=== PATIENT | male | born 1955 | race Caucasian/White ===

== ENCOUNTER → 2017-01-27 | Outpatient (CLI) | payer OTHER ==
[2017-01-27 09:27] LABS: CH 32.7; CHCM 33.9; HCT 52.5 % (39.0-53.0); HDW 2.45; HGB 17.1 gm/dL (13.0-17.5); MCH 31.6 pg (25.0-35.0); MCHC 32.6 g/dL (31.0-37.0); MCV 96.9 fL (80.0-100.0); Mean Platelet Volume 7.8; RBC 5.42 m/uL (4.30-5.90); RDW 14.4 % (11.5-15.5); WBC 9.6 k/uL (3.8-10.6)
[2017-01-27 10:37] LABS: Anion Gap 10 mmol/L; Blood Urea Nitrogen 13 mg/dL (9-20); Calcium 9.4 mg/dL (8.4-10.2); Carbon Dioxide 30 mmol/L (22-30); Chloride 97 mmol/L (98-107); Glucose 114 mg/dL (74-99); Non-African American GFR(MDRD) >60 (>60 ml/min/1.73 sqM); Potassium 5.3 mmol/L (3.5-5.1); Sodium 137 mmol/L (137-145)
== END | disposition home or self-care (01) ==
LOC: LABWHC1 08:54
PROVIDERS: ATTEND Internal Medicine Interventional Cardiology
DX: I25.10 Atherosclerotic heart disease of native coronary artery without angina pectoris (principal); I10 Essential (primary) hypertension
CPT/HCPCS: 36415; 80048; 85027

== ENCOUNTER 2017-09-29 09:03 | Day surgery (SDC) | payer OTHER ==
[2017-09-25 16:11] VITALS: BMI 33.4
[~2017-09-29 09:03] MED LIST: LACTATED RINGERS 1,000 ML IV SCH
[2017-09-29] MEDS ORDERED: ALBUTEROL NEBULIZED 2.5 MG/3 ML INHALATION STA (09:31)
[2017-09-29 09:38] VITALS: RESP 20; TEMP 97.2
[2017-09-29] MEDS ORDERED: LIDOCAINE 1% 20 ML VIAL (10MG/ML) FOR IV START INTRADERMA ONE (09:41)
[2017-09-29] MEDS ORDERED: LIDOCAINE 1% INJ 10MG/ML (20 ML MDV) ONE (10:28)
[2017-09-29] MEDS ORDERED: PROPOFOL 10 MG/ML 20 ML VIAL IV ONE (10:28)
--- NOTE | 2017-09-29 10:31 | P.GSHP ---
History of Present Illness H&P Date: 09/29/17 Chief Complaint: Screening colonoscopy This a 62-year-old male referred from Dr. Jose Cote. Patient presents today for screening colonoscopy. He denies any significant GI complaints. 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 History of Any Multi-Drug Resistant Organisms: None Reported Additional Past Surgical History / Comment(s): STATES VASECTOMY WITH ANESTHESIA. Past Anesthesia/Blood Transfusion Reactions: No Reported Reaction, Motion Sickness Past Psychological History: Anxiety Smoking Status: Heavy tobacco smoker Past Alcohol Use History: Heavy Additional Past Alcohol Use History / Comment(s): SMOKES 2 PPD. , SMOKING SINCE 12 YEARS OLD. -( 49 YEARS). DRINKS 3-6 BEERS DAILY Past Drug Use History: None Reported - Past Family History Father Family Medical History: Cancer Additional Family Medical History / Comment(s): ESOPHAGEAL CANCER Sister(s) Family Medical History: Cancer Additional Family Medical History / Comment(s): BREAST CANCER Medications and Allergies Home Medications Medication Instructions Recorded Confirmed Type Aspirin 325 mg PO DAILY 09/25/17 09/29/17 History Escitalopram [Lexapro] 10 mg PO DAILY 09/25/17 09/29/17 History Metoprolol Tartrate [Lopressor] 25 mg PO DAILY 09/25/17 09/29/17 History Pravastatin Sodium [Pravachol] 40 mg PO HS 09/25/17 09/29/17 History Tamsulosin HCl [Flomax] 0.4 mg PO PC-SUPPER 09/25/17 09/29/17 History Allergies Allergy/AdvReac Type Severity Reaction Status Date / Time No Known Allergies Allergy Verified 09/25/17 16:04 Surgical - Exam Vital Signs Temp Pulse Resp BP Pulse Ox 97.2 F L 54 L 20 131/63 94 L 09/29/17 09:36 09/29/17 09:36 09/29/17 09:36 09/29/17 09:36 09/29/17 09:36 - General well developed, no distress - Eyes PERRL - ENT normal pinna - Neck no masses - Respiratory normal expansion - Cardiovascular Rhythm: regular - Abdomen Abdomen: soft, non tender Assessment and Plan Assessment: We'll perform screening colonoscopy.
--- NOTE | 2017-09-29 10:50 | P.OP ---
Date of Procedure: 09/29/17 Preoperative Diagnosis: Screening colonoscopy Postoperative Diagnosis: Normal colon Procedure(s) Performed: Colonoscopy Anesthesia: MAC Surgeon: Valentin Grimm Pathology: none sent Condition: stable Disposition: PACU Description of Procedure: PROCEDURE: The patient was placed on the endoscopy table in the lateral position. Digital rectal examination was performed which revealed no abnormalities. The prostate was symmetrical without nodules. Flexible colonoscope was then placed in the patient's anus and passed throughout the entire colon. The ileocecal valve was visualized. The cecum, ascending, transverse, descending and sigmoid colon were normal. The rectum was normal as well. There were no masses, polyps or diverticula noted in the entire colon. SUMMARY OF FINDINGS: Normal colonoscopy.
[2017-09-29 11:14] VITALS: BP 167/78; PULSE 61
== END 2017-09-29 11:32 | disposition home or self-care (01) ==
LOC: ORWHC2ENDO 09:03
PROVIDERS: ATTEND Surgery
DX: Z12.11 Encounter for screening for malignant neoplasm of colon (principal); I10 Essential (primary) hypertension; E78.5 Hyperlipidemia, unspecified; F32.9 Major depressive disorder, single episode, unspecified; N40.0 Benign prostatic hyperplasia without lower urinary tract symptoms; F41.9 Anxiety disorder, unspecified; F17.210 Nicotine dependence, cigarettes, uncomplicated; Z80.0 Family history of malignant neoplasm of digestive organs; Z98.52 Vasectomy status; Z79.899 Other long term (current) drug therapy; Z79.82 Long term (current) use of aspirin
CPT/HCPCS: 94640; 45378; J2001; J2704

== ENCOUNTER 2018-03-11 10:10 | Emergency (ER) | payer OTHER ==
[2018-03-11 10:26] VITALS: RESP 18
--- NOTE | 2018-03-11 10:38 | ED ---
General Adult HPI - General Chief complaint: Skin/Abscess/Foreign Body Stated complaint: Wound on leg Source: patient Mode of arrival: ambulatory Limitations: no limitations - History of Present Illness Initial comments: Dictation was produced using [employer] dictation software. please excuse any grammatical, word or spelling errors. Chief Complaint: 62-year-old male past medical history of hypertension , tobacco abuse presents with a nonhealing wound on his left lateral tibial area. History of Present Illness: This 62-year-old male with multiple comorbidities presents with nonhealing left ankle wound. Patient states this lesion has been on his leg for the past 10-12 days. Patient denies any medical problems of vasculopathies. He states that they've been addressing his wound with topical antibiotics and qzeg-dla-jutlxic wound care. They were seen at the urgent care yesterday and were told to come straight to the emergency department. They did not prescribe any antibiotics. Patient denies any pain at that site. They went to the urgent care yesterday because his family doctor was not in town. The ROS documented in this emergency department record has been reviewed and confirmed by me. Those systems with pertinent positive or negative responses have been documented in the HPI. All other systems are other negative and/or noncontributory. - Related Data Home Medications Medication Instructions Recorded Confirmed Aspirin 325 mg PO DAILY 09/25/17 03/11/18 Escitalopram [Lexapro] 10 mg PO DAILY 09/25/17 03/11/18 Metoprolol Tartrate [Lopressor] 25 mg PO DAILY 09/25/17 03/11/18 Pravastatin Sodium [Pravachol] 40 mg PO HS 09/25/17 03/11/18 Tamsulosin HCl [Flomax] 0.4 mg PO PC-SUPPER 09/25/17 03/11/18 Previous Rx's Medication Instructions Recorded Cephalexin [Keflex] 500 mg PO Q6HR 5 Days #20 cap 03/11/18 Sulfamethox-Tmp 800-160Mg [Bactrim 1 tab PO Q12HR 5 Days #10 tab 03/11/18 DS 800-160 mg] Allergies Allergy/AdvReac Type Severity Reaction Status Date / Time No Known Allergies Allergy Verified 03/11/18 10:49 Review of Systems ROS Statement: Those systems with pertinent positive or pertinent negative responses have been documented in the HPI. ROS Other: All systems not noted in ROS Statement are negative. 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 History of Any Multi-Drug Resistant Organisms: None Reported Additional Past Surgical History / Comment(s): STATES VASECTOMY WITH ANESTHESIA. Past Anesthesia/Blood Transfusion Reactions: No Reported Reaction, Motion Sickness Past Psychological History: Anxiety Smoking Status: Heavy tobacco smoker Past Alcohol Use History: Heavy Past Drug Use History: None Reported - Past Family History Father Family Medical History: Cancer Additional Family Medical History / Comment(s): ESOPHAGEAL CANCER Sister(s) Family Medical History: Cancer Additional Family Medical History / Comment(s): BREAST CANCER General Exam - General Exam Comments Initial Comments: PHYSICAL EXAM: General Impression: Alert and oriented x3, not in acute distress HEENT: Normocephalic atraumatic, extra-ocular movements intact, pupils equal and reactive to light bilaterally, mucous membranes moist. Cardiovascular: Heart regular rate and rhythm, S1&S2 audible, no murmurs, rubs or gallops Chest: Lungs clear to auscultation bilaterally, no rhonchi, no wheeze, no rales Abdomen: Bowel sounds present, abdomen soft, non-tender, non-distended, no organomegaly Musculoskeletal: Pulses present and equal in all extremities, no peripheral edema Motor: Power 5/5 bilaterally, no focal deficits noted Neurological: CN II-XII grossly intact, no focal motor or sensory deficits noted Skin: 3 x 3 centimeter ulcer with minimal surrounding erythema Psych: Normal affect and mood Limitations: no limitations Course Vital Signs 03/11/18 10:25 Temperature 98.1 F Pulse Rate 87 Respiratory 18 Rate Blood Pressure 139/77 O2 Sat by Pulse 96 Oximetry Medical Decision Making - Medical Decision Making 62-year-old male multiple comorbidities presents with nonhealing ulcer to the left lower extremity. Vital signs upon arrival are within acceptable limits. Clinical presentation consistent with nonhealing wound like secondary to poor vascular circulation. Patient does have weak pulses to the left lower extremity. Given multiple comorbidities and nonhealing wounds we will start patient on by mouth antibiotics. Does have an appointment with his primary care physician on . He is instructed to maintain that appointment for wound check.Laboratory evaluation obtained. CBC unremarkable. Metabolic panel is unremarkable. Wound was dressed with Vaseline gauze. Patient given prescription for Bactrim and Keflex. He is told to follow up with his primary care physician. He has an appointment on . Patient told to follow-up with his primary care physician for wound check. Patient understandable and agreeable to plan. - Lab Data Result diagrams: 03/11/18 11:13 03/11/18 11:13 Lab Results 03/11/18 03/11/18 Range/Units 11:13 11:13 WBC 10.3 (3.8-10.6) k/uL RBC 4.92 (4.30-5.90) m/uL Hgb 15.3 (13.0-17.5) gm/dL Hct 45.4 (39.0-53.0) % MCV 92.3 (80.0-100.0) fL MCH 31.2 (25.0-35.0) pg MCHC 33.8 (31.0-37.0) g/dL RDW 13.3 (11.5-15.5) % Plt Count 271 (150-450) k/uL Neutrophils % 76 % Lymphocytes % 16 % Monocytes % 5 % Eosinophils % 1 % Basophils % 0 % Neutrophils # 7.8 H (1.3-7.7) k/uL Lymphocytes # 1.6 (1.0-4.8) k/uL Monocytes # 0.5 (0-1.0) k/uL Eosinophils # 0.1 (0-0.7) k/uL Basophils # 0.0 (0-0.2) k/uL Sodium 135 L (137-145) mmol/L Potassium 5.1 (3.5-5.1) mmol/L Chloride 96 L (98-107) mmol/L Carbon Dioxide 29 (22-30) mmol/L Anion Gap 10 mmol/L BUN 12 (9-20) mg/dL Creatinine 0.74 (0.66-1.25) mg/dL Est GFR (CKD-EPI)AfAm >90 (>60 ml/min/1.73 sqM) Est GFR (CKD-EPI)NonAf >90 (>60 ml/min/1.73 sqM) Glucose 109 H (74-99) mg/dL Calcium 9.3 (8.4-10.2) mg/dL Disposition Clinical Impression: Ankle ulcer Disposition: HOME SELF-CARE Condition: Good Instructions: Acute Wound Care (ED) Prescriptions: Cephalexin [Keflex] 500 mg PO Q6HR 5 Days #20 cap Sulfamethox-Tmp 800-160Mg [Bactrim DS 800-160 mg] 1 tab PO Q12HR 5 Days #10 tab Is patient prescribed a controlled substance at d/c from ED?: No Referrals: Jose Yao DO [Primary Care Provider] - 1-2 days
[2018-03-11 11:40] LABS: Basophils % (A) 0 %; Eosinophils # (A) 0.1 k/uL (0-0.7); Eosinophils % (A) 1 %; HCT 45.4 % (39.0-53.0); HGB 15.3 gm/dL (13.0-17.5); Lymphocytes # (A) 1.6 k/uL (1.0-4.8); Lymphocytes % (A) 16 %; MCH 31.2 pg (25.0-35.0); MCHC 33.8 g/dL (31.0-37.0); MCV 92.3 fL (80.0-100.0); Mean Platelet Volume 7.1; Monocytes # (A) 0.5 k/uL (0-1.0); Monocytes % (A) 5 %; Neutrophils # (A) 7.8 k/uL (1.3-7.7); Neutrophils % (A) 76 %; Platelet Count 271 k/uL (150-450); RBC 4.92 m/uL (4.30-5.90); RDW 13.3 % (11.5-15.5); WBC 10.3 k/uL (3.8-10.6)
[2018-03-11 11:50] LABS: Anion Gap 10 mmol/L; Blood Urea Nitrogen 12 mg/dL (9-20); Calcium 9.3 mg/dL (8.4-10.2); Carbon Dioxide 29 mmol/L (22-30); Chloride 96 mmol/L (98-107); Glucose 109 mg/dL (74-99); Potassium 5.1 mmol/L (3.5-5.1); Sodium 135 mmol/L (137-145)
[2018-03-11 12:18] VITALS: BP 144/84; PULSE 84; TEMP 98.4
== END 2018-03-11 12:17 | disposition home or self-care (01) ==
LOC: EC 10:10
DX: L97.329 Non-pressure chronic ulcer of left ankle with unspecified severity (principal); I10 Essential (primary) hypertension; F41.9 Anxiety disorder, unspecified; F17.200 Nicotine dependence, unspecified, uncomplicated; Z79.82 Long term (current) use of aspirin; Z79.899 Other long term (current) drug therapy; Z87.39 Personal history of other diseases of the musculoskeletal system and connective tissue
CPT/HCPCS: 36415; 80048; 85025; 99283

== ENCOUNTER → 2018-04-01 | Outpatient (CLI) | payer OTHER ==
[2018-04-01 08:41] LABS: HCT 47.6 % (39.0-53.0); HGB 15.3 gm/dL (13.0-17.5); MCH 30.4 pg (25.0-35.0); MCHC 32.1 g/dL (31.0-37.0); MCV 94.6 fL (80.0-100.0); Mean Platelet Volume 6.9; Platelet Count 256 k/uL (150-450); RBC 5.03 m/uL (4.30-5.90); RDW 13.3 % (11.5-15.5); WBC 8.8 k/uL (3.8-10.6)
[2018-04-01 16:55] LABS: Albumin 4.7 g/dL (3.80-4.90); Albumin/Globulin Ratio 1.96 (1.20-2.10); Anion Gap 7.7 mmol/L (4.00-12.00); Calcium 9.4 mg/dL (8.7-10.3); Carbon Dioxide 30.3 mmol/L (21.6-31.8); Globulin 2.4 g/dL (2.1-3.7); Potassium 5.2 mmol/L (3.5-5.5); Total Bilirubin 0.7 mg/dL (0.3-1.2); Total Protein 7.1 g/dL (6.2-8.2)
== END ==
LOC: LABWHC1 08:15
PROVIDERS: ATTEND Nurse Practitioner Family
DX: E63.8 Other specified nutritional deficiencies (principal)
CPT/HCPCS: 36415; 80053; 84134; 85027

== ENCOUNTER → 2018-04-13 | Outpatient (CLI) | payer MEDICARE ==
--- NOTE | 2018-04-13 11:37 | US ---
LOWER EXTREMITY VENOUS INSUFFICIENCY SIDE PERFORMED: Bilateral 1) Color flow is present and patency is documented in the following vessels. No DVT or SVT is noted . EIV Common Femoral Vein Deep Femoral Vein Femoral Vein Popliteal Vein Proximal Calf Veins Greater Saph Vein Upper Small Saph Vein 2) There is venous reflux noted at the following venous levels: Right: EIV, CFV, GSV, Left: EIV, CFV Grayscale, color Doppler, spectral Doppler imaging performed of the deep veins of the lower extremiti es. IMPRESSION: Venous reflux disease in the lower extremities.
== END | disposition home or self-care (01) ==
LOC: RADUSWWP 08:54
PROVIDERS: ATTEND Family Medicine
DX: I73.89 Other specified peripheral vascular diseases (principal); M79.604 Pain in right leg
CPT/HCPCS: 93970

== ENCOUNTER → 2018-04-21 | Outpatient (CLI) | payer MEDICARE ==
[2018-04-21 10:52] LABS: HCT 49.5 % (39.0-53.0); HGB 16.5 gm/dL (13.0-17.5); MCH 31.1 pg (25.0-35.0); MCHC 33.2 g/dL (31.0-37.0); MCV 93.7 fL (80.0-100.0); Mean Platelet Volume 7.7; Platelet Count 265 k/uL (150-450); RBC 5.29 m/uL (4.30-5.90); RDW 13.1 % (11.5-15.5); WBC 9.3 k/uL (3.8-10.6)
[2018-04-21 11:05] LABS: Anion Gap 10 mmol/L; Blood Urea Nitrogen 16 mg/dL (9-20); Carbon Dioxide 29 mmol/L (22-30); Chloride 98 mmol/L (98-107); Glucose 118 mg/dL (74-99); Magnesium 2.3 mg/dL (1.6-2.3); Sodium 137 mmol/L (137-145)
[2018-04-21 11:09] LABS: Potassium 6.2 mmol/L (3.5-5.1)
== END | disposition home or self-care (01) ==
LOC: LABPAT 08:53
PROVIDERS: ATTEND Internal Medicine Interventional Cardiology
DX: Z01.812 Encounter for preprocedural laboratory examination (principal); I73.9 Peripheral vascular disease, unspecified; R06.02 Shortness of breath
CPT/HCPCS: 80051; 82565; 82947; 83735; 84520; 85027

== ENCOUNTER → 2018-04-22 | Outpatient (CLI) | payer MEDICARE | END | disposition home or self-care (01) | LOC: LABWHC1 09:11 | PROVIDERS: ATTEND Internal Medicine Interventional Cardiology | DX: E87.5 Hyperkalemia (principal) | CPT/HCPCS: 36415; 84132 ==

== ENCOUNTER 2018-05-04 09:20 | Day surgery (SDC) | payer MEDICARE, OTHER ==
[2018-04-29 11:28] VITALS: BMI 35.7
[2018-05-04] MEDS ORDERED: SODIUM CHLORIDE 0.9% 1,000 ML IV ONE (10:06)
[2018-05-04] MEDS ORDERED: VERAPAMIL 2.5 MG/ML 2 ML AMP ONE (10:19)
[2018-05-04] MEDS ORDERED: LIDOCAINE 1% INJ 10MG/ML (20 ML MDV) ONE (10:19)
[2018-05-04] MEDS ORDERED: MIDAZOLAM 2 MG/2 ML VIAL ONE (10:26)
[2018-05-04] MEDS ORDERED: MIDAZOLAM 2 MG/2 ML VIAL IVP ONE (11:05)
[2018-05-04] MEDS ORDERED: LIDOCAINE 1% INJ 10MG/ML (20 ML MDV) SQ ONE (11:06)
[2018-05-04] MEDS ORDERED: HEPARIN SODIUM 1,000 UN/ML (10ML VL) IV ONE (11:12)
[2018-05-04] MEDS ORDERED: BIVALIRUDIN 250 MG in SODIUM CHLORIDE 0.9% 50 ML IV ONE ×2 (11:30→11:37)
[2018-05-04] MEDS ORDERED: BIVALIRUDIN BOLUS 250 MG/50 ML IV ONE (11:30)
[2018-05-04] MEDS ORDERED: IOPAMIDOL-370 100ML BTL INJ ONE ×2 (11:36→12:21)
[2018-05-04] MEDS ORDERED: MORPHINE SULFATE 4 MG/ML SYRINGE ONE (11:54)
[2018-05-04] MEDS ORDERED: MORPHINE SULFATE 4MG/4ML SYRG IVP ONE (11:56)
[2018-05-04] MEDS: NITROGLYCERIN 1000MCG/10ML SYRINGE INTRACORON ONE ×2 (12:06→12:19)
[2018-05-04] MEDS ORDERED: CLOPIDOGREL 75 MG TAB ONE (12:23)
[2018-05-04] MEDS ORDERED: CLOPIDOGREL 75 MG TAB PO ONE (12:42)
[2018-05-04] MEDS ORDERED: RX INFO: IV CONTRAST WAS GIVEN 1 EACH MISC MISCELLANE PRN (12:57)
[2018-05-04] MEDS ORDERED: MAG HYDROX/AL HYDROX/SIMETH 30 ML CUP PO PRN (12:57)
[2018-05-04] MEDS ORDERED: ATROPINE SULFATE 0.1 MG/ML 10ML SYRINGE IV PRN (12:57)
[2018-05-04] MEDS ORDERED: NITROGLYCERIN SL TABS 0.4 MG TAB SUBLINGUAL PRN ×2 (12:57→17:37)
[2018-05-04] MEDS ORDERED: ZOLPIDEM 5 MG TAB PO PRN (12:57)
[2018-05-04] MEDS ORDERED: ALPRAZolam 0.25 MG TAB PO PRN (17:37)
[2018-05-04] MEDS ORDERED: SODIUM CHLORIDE 0.9% 1,000 ML in EMPTY BAG 1 BAG IV ONE (17:37)
[2018-05-04] MEDS ORDERED: ALPRAZolam 0.5 MG TAB PO PRN (17:37)
[2018-05-04] MEDS ORDERED: ATORVASTATIN 80 MG TAB PO STA (17:42)
[2018-05-04] MEDS ORDERED: ASPIRIN 325 MG TAB PO STA (17:42)
[2018-05-04] MEDS: SODIUM CHLORIDE 0.9% 1,000 ML IV SCH (17:48)
[2018-05-04] MEDS ORDERED: TAMSULOSIN 0.4 MG CAP.ER.24H PO SCH (18:30)
[2018-05-04] MEDS ORDERED: LOSARTAN 25 MG TAB PO SCH (21:00)
--- NOTE | 2018-05-04 21:49 | CC ---
CARDIAC CATHETERIZATION REPORT DATE OF SERVICE: 05/04/2018. PROCEDURE: 1. Left heart catheterization and coronary angiography. 2. PTCA and stenting of a complex tortuous proximal/mid circumflex coronary artery with 2 drug-eluting stents. PERFORMED BY: Dr. Oz Acosta. SEDATION: Moderate conscious sedation time was 82 minutes. Patient was administered a combination of Versed and Benadryl and his oxygen saturation, hemodynamics and EKG were monitored closely. CLINICAL INFORMATION: Mr. Anthony Henry is a 63-year-old gentleman with a history of peripheral arterial disease, hypertension, hypercholesterolemia, smoking, COPD, possible sleep apnea syndrome. He has been experiencing increasing shortness of breath and chest tightness and had a stress test which revealed evidence of old inferior UT with significant area of felix-infarct ischemia. He was therefore advised coronary angiography and possible PCI based on findings. Risks, benefits, options and rationale were explained. CARDIAC CATHETERIZATION PROCEDURE NOTE: Under local anesthesia and strict aseptic precautions, a 6-Turkish introducer was placed in the right radial artery. Using a 3.5 left and a 4.0 right Piotr catheter, I performed coronary angiography of both coronary arteries and checked LV pressures using the same left catheter but did not do an LV-gram. Subsequently I noted that he had a significant lesion in the circumflex with total occlusion of the RCA which is collateralized from the LAD system. He was advised intervention that was performed expeditiously. TRIMMER SAWYER PROCEDURE DETAILS: I used a JL 4.0 guide catheter of 6-Turkish caliber and a run-through wire. I was able to cross the lesion easily. I pre-dilated the lesion with a 2.5 caliber NC Trek balloon of 12 mm length. However, I had difficulty advancing the stent because of tortuosity and heavy calcification at the site of the lesion. After some difficulty, I deployed a 2.758 mm Xience stent and deployed this in the proximal half of the lesion. The distal half of the lesion, however, was difficult to reach. I advanced and positioned a Whisper wire. Even with a 2-wire system, I had difficulty. However, the 2nd wire came out and using the same run-through wire I advanced and dilated the area beyond the stented segment with a 2.5 trek balloon. I then advanced a 2.0 caliber Ian stent and deployed this just distal to the previous stent, telescoping into it. This Keavy 2.0 stent was then postdilated with a 2.5 caliber NC Trek balloon up to 15 atmospheres. Patient did not have chest pain but had EKG changes with precordial ST depression. Excellent angiographic result was achieved. There were no complications. Results were discussed with the patient and family. The catheter and sheath was taken out and TR band applied as per protocol with good saturation in the fingers of the right hand. CARDIAC CATHETERIZATION FINDINGS: LEFT MAIN CORONARY ARTERY: Long patent disease-free vessel with mild to moderate calcification, bifurcates into LAD and circumflex. LEFT ANTERIOR DESCENDING CORONARY ARTERY: This vessel has moderate disease in the midportion of up to 40% to 45% without any critical areas of narrowing. LAD is a good caliber vessel, extends along the anterior wall and supplies a sizable amount of myocardium. No significant disease is noted other than the moderate stenosis in the mid segment. However, no critical lesions are noted in the LAD. There is a fairly decent sized diagonal branch that comes off which has about a 60% to 70% narrowing. However, the LAD itself in the midportion has about a 40% to stenosis with decent flow and it provides collaterals to the RCA that is totally occluded. LEFT POSTERIOR CIRCUMFLEX CORONARY ARTERY: Tortuous vessel. In the proximal portion there is moderate calcification and within the tortuous segment there is 80% stenosis. Just after the stenotic segment there is a small branch that comes off which has sluggish flow. This seems to be the groove branch and then the circumflex marginal is free of significant disease with fair caliber. The circumflex therefore has a significant lesion in the junction of the proximal and middle 1/3 of about 80% to 90% eccentric and an tortuous portion at a bend. RIGHT CORONARY ARTERY: This vessel is totally occluded with the midportion with limited antegrade flow. The distal RCA branches are collateralized by the left system, particularly the LAD. LEFT VENTRICULOGRAM: Left ventriculogram was not performed, but left ventricle end-diastolic pressure was about 16 mmHg without any gradient across the aortic valve. ASSESSMENT: Excellent PTCA result was achieved with 2 drug-eluting stents. There were no complications noted. MMODL / IJN: [id number] /
[2018-05-05] MEDS: SODIUM CHLORIDE 0.9% 1,000 ML IV SCH (01:33)
[2018-05-05 02:24] VITALS: RESP 18
[2018-05-05 06:47] LABS: Basophils % (A) 0 %; Eosinophils # (A) 0.1 k/uL (0-0.7); Eosinophils % (A) 1 %; HCT 45.9 % (39.0-53.0); HGB 15.8 gm/dL (13.0-17.5); Lymphocytes # (A) 1.7 k/uL (1.0-4.8); Lymphocytes % (A) 16 %; MCH 31.6 pg (25.0-35.0); MCHC 34.4 g/dL (31.0-37.0); MCV 91.9 fL (80.0-100.0); Mean Platelet Volume 7.7; Monocytes # (A) 0.5 k/uL (0-1.0); Monocytes % (A) 5 %; Neutrophils # (A) 8.5 k/uL (1.3-7.7); Neutrophils % (A) 76 %; Platelet Count 233 k/uL (150-450); WBC 11.1 k/uL (3.8-10.6)
[2018-05-05 06:53] LABS: Anion Gap 10 mmol/L; Blood Urea Nitrogen 11 mg/dL (9-20); Calcium 9.4 mg/dL (8.4-10.2); Carbon Dioxide 27 mmol/L (22-30); Chloride 100 mmol/L (98-107); Glucose 118 mg/dL (74-99); Potassium 4.8 mmol/L (3.5-5.1); Sodium 137 mmol/L (137-145)
--- NOTE | 2018-05-05 07:57 | DS ---
DISCHARGE SUMMARY DATE OF ADMISSION: 05/04/2018 DATE OF DISCHARGE: 05/05/2018 DIAGNOSES: 1. Unstable angina. 2. Peripheral arterial disease. 3. Chronic obstructive pulmonary disease and smoking. 4. Probable sleep apnea syndrome. 5. Hypertension. 6. Hypercholesterolemia. This gentleman was admitted to the hospital electively for a cardiac cath in view of an abnormal stress test suggestive of a prior inferior NC with multivessel disease. Cardiac catheterization was performed by the right radial approach which revealed total occlusion of RCA and a significant lesion involving the circumflex coronary artery. He underwent stenting of circumflex, which was a technically difficult procedure given the tortuosity. He has 2 drug-eluting stents deployed and the 2.0 [place] stent was dilated with a 2.5 NC Trek balloon. Excellent angiographic result was achieved. Patient does have episodes of bradycardia. He is only on 12.5 mg of metoprolol tartrate to be taken in the morning. He probably has underlying sleep apnea as well. Postprocedure course was unremarkable other than the episodes of asymptomatic bradycardia. His right radial cath site is clean and dry. Blood pressure is 150/70, pulse rate is 70 per minute. There is JVD of 1 cm. No carotid bruit. S1, S2 with a short systolic murmur is audible at the base. Second heart sound is preserved. Lungs revealed diminished air entry. Abdomen is soft. Lower extremities reveal diminished pulses. No changes in the findings. His right radial cath site is clean and dry. EKG revealed sinus mechanism with incomplete RBBB. No acute changes. His laboratory data from today revealed that his BUN, creatinine, potassium, and platelet count are all normal. The patient can be discharged after he is seen by Dr. Juan from a COPD/sleep apnea standpoint for possible sleep study. He is advised discharge instructions regarding activity, diet, medications, and smoking cessation. I have an appointment scheduled for him at 10 a.m. on May 08. The patient can be discharged after seen by Dr. Juan. MMODL / IJN: [id number] /
[2018-05-05 08:12] VITALS: BP 176/73; PULSE 67; TEMP 97.7
[2018-05-05] MEDS ORDERED: FUROSEMIDE 40 MG TAB PO SCH (09:00)
[2018-05-05] MEDS ORDERED: ESCITALOPRAM 10 MG TAB PO SCH (09:00)
[2018-05-05] MEDS ORDERED: METOPROLOL TARTRATE 12.5 MG TAB PO SCH (09:00)
[2018-05-05] MEDS ORDERED: ASPIRIN 81 MG PO SCH (09:00)
[2018-05-05] MEDS ORDERED: CLOPIDOGREL 75 MG TAB PO SCH (12:00)
--- NOTE | 2018-05-05 13:01 | P.CNPUL ---
History of Present Illness Consult date: 05/05/18 Requesting physician: Papito Acosta Reason for consult: obstructive sleep apnea, other Chief complaint: Pulmonary evaluation for possible underlying obstructive sleep apnea History of present illness: This is a 63-year-old white male patient of Dr. Yao, who came in for elective heart catheterization with intervention on 05/04/[address] AIME Acosta. Patient had been short of breath for last year, has a history of peripheral arterial disease, coronary artery disease, probable chronic obstructive pulmonary disease, current history of smoking, hypertension, hyperlipidemia. He had an abnormal stress test suggestive of a prior inferior wall MD with multivessel disease. He underwent PCI and stenting of the circumflex coronary artery with 2 drug-eluting stents on 05/04/2018. Patient is doing well, no chest pain, vital signs have been stable. We were asked to see the patient in evaluation for possible underlying obstructive sleep apnea. Patient's spouse states patient snores quite significantly at night the point where they don't share the same bedroom. Patient denies any daytime drowsiness, but he is up frequently at night urinating, at least 6 times per night. Patient is a current smoker, 1-2 packs a day for many years. He is not on any breathing treatments or inhalers or oxygen on a regular basis. Once are diminished, without any wheezes or rhonchi, or signs are stable, room air pulse ox is 96%. Chest x-ray was done this admission. Today's labs showed WBC of 11.1, hemoglobin 15.8, BMP was unremarkable, with the exception of glucose which was 118. Chronic left lower extremity wound and patient goes to the wound care clinic. Review of Systems All systems: negative Constitutional: Denies chills, Denies fever Eyes: denies blurred vision, denies pain Ears, nose, mouth and throat: Denies headache, Denies sore throat Cardiovascular: Denies chest pain, Denies shortness of breath Respiratory: Reports cough, Reports dyspnea Gastrointestinal: Denies abdominal pain, Denies diarrhea, Denies nausea, Denies vomiting Musculoskeletal: Denies myalgias Integumentary: Denies pruritus, Denies rash Neurological: Denies numbness, Denies weakness Psychiatric: Denies anxiety, Denies depression Endocrine: Denies fatigue, Denies weight change Past Medical History Past Medical History: Hyperlipidemia, Hypertension, Myocardial Infarction (MD), Prostate Disorder, Skin Disorder Additional Past Medical History / Comment(s): FREQUENT URINATION, SOB WITH ACTIVITY., OCCASIONAL BACK PAIN , wound lt leg- seen in wound care once a week Last Myocardial Infarction Date:: unknown History of Any Multi-Drug Resistant Organisms: None Reported Additional Past Surgical History / Comment(s): STATES VASECTOMY WITH ANESTHESIA. Past Anesthesia/Blood Transfusion Reactions: No Reported Reaction, Motion Sickness Smoking Status: Current every day smoker - Past Family History Father Family Medical History: Cancer Additional Family Medical History / Comment(s): ESOPHAGEAL CANCER Sister(s) Family Medical History: Cancer Additional Family Medical History / Comment(s): BREAST CANCER Medications and Allergies Home Medications Medication Instructions Recorded Confirmed Type Escitalopram [Lexapro] 10 mg PO DAILY 09/25/17 05/04/18 History Metoprolol Tartrate [Lopressor] 12.5 mg PO DAILY 09/25/17 05/04/18 History Tamsulosin HCl [Flomax] 0.4 mg PO PC-SUPPER 09/25/17 05/04/18 History Furosemide [Lasix] 40 mg PO DAILY 04/29/18 05/04/18 History Losartan [Cozaar] 25 mg PO HS 04/29/18 05/04/18 History Aspirin 81 mg PO DAILY #90 chew 05/05/18 Rx Atorvastatin [Lipitor] 80 mg PO HS #90 tab 05/05/18 Rx Clopidogrel [Plavix] 75 mg PO DAILY #90 tab 05/05/18 Rx Nitroglycerin Sl Tabs [Nitrostat] 0.4 mg SUBLINGUAL Q5M PRN #25 tab 05/05/18 Rx Tamsulosin [Flomax] 0.4 mg PO PC-SUPPER cap.er.24h 05/05/18 Rx Allergies Allergy/AdvReac Type Severity Reaction Status Date / Time No Known Allergies Allergy Verified 04/29/18 11:17 Physical Exam Vitals: Vital Signs Temp Pulse Pulse Resp BP Pulse Ox 05/05/18 08:00 97.7 F 67 18 176/73 96 05/05/18 07:52 18 05/05/18 03:54 71 18 168/76 93 L 05/05/18 02:25 75 18 157/79 92 L 05/05/18 02:20 75 18 159/79 92 L 12/04/18 02:15 83 18 174/81 92 L 05/05/18 02:10 79 20 222/88 94 L 05/05/18 02:08 35 L 24 219/96 93 L 05/04/18 23:49 98 F 71 20 L 18 141/60 94 L 05/04/18 20:00 97.4 F L 64 18 138/62 93 L 05/04/18 17:42 71 17 143/64 94 L 05/04/18 15:44 64 16 144/63 93 L 05/04/18 14:44 64 16 141/64 93 L 05/04/18 14:14 66 16 127/61 92 L 05/04/18 13:44 65 16 120/60 91 L 05/04/18 13:29 73 16 147/68 91 L 05/04/18 13:14 79 16 116/55 89 L 05/04/18 12:59 70 16 131/57 89 L Intake and Output 05/04/18 05/05/18 05/05/18 22:59 06:59 14:59 Intake Total 600 10 240 Balance 600 10 240 Intake: IV 600 10 Sodium Chloride 0.9% 1, 600 10 000 ml @ 75 mls/hr IV . [id number] [facility] Rx#:[id number] Oral 240 Other: Weight 106.594 kg 103.5 kg GENERAL EXAM: Alert, active, comfortable in no apparent distress. HEAD: Normocephalic/atraumatic. EYES: Normal reaction of pupils, equal size. Conjunctiva pink, sclera white. NOSE: Clear with pink turbinates. THROAT: No erythema or exudates. The patient has a Mallampati class IV was significant crowding of the posterior oropharynx typical of obstructive sleep apnea NECK: No masses, no JVD, no thyroid enlargement, no adenopathy. CHEST: No chest wall deformity. Symmetrical expansion. Diminished breath lungs bilaterally along with some few scattered expiratory wheezes LUNGS: Equal air entry with no crackles, positive wheeze, rhonchi or dullness. CVS: Regular rate and rhythm, normal S1 and S2, no gallops, no murmurs, no rubs ABDOMEN: Soft, nontender. No hepatosplenomegaly, normal bowel sounds, no guarding or rigidity. EXTREMITIES: No clubbing, no edema, no cyanosis, 2+ pulses and upper and lower extremities. MUSCULOSKELETAL: Muscle strength and tone normal. SPINE: No scoliosis or deformity SKIN: No rashes, chronically treated also on the left lower extremity showed which is currently dressed for now. There is trace edema bilateral lower extremity. CENTRAL NERVOUS SYSTEM: Alert and oriented -3. No focal deficits, tone is normal in all 4 extremities. PSYCHIATRIC: Alert and oriented -3. Appropriate affect. Intact judgment and insight. Results - Laboratory Findings CBC and BMP: 05/05/18 05:41 05/05/18 05:41 Abnormal lab findings: Abnormal Labs 05/05/18 05/05/18 05:41 05:41 WBC 11.1 H Neutrophils # 8.5 H Glucose 118 H Assessment and Plan Plan: Assessment 1 coronary artery disease normal patient is status post cardiac catheterization insertion of coronary stents to the circumflex artery and the procedure was unsuccessful many complications. The patient is currently free of any chest pain 2 COPD, likely of moderate severity and this is to be followed up on outpatient basis with a pulmonary function test. Chest x-ray will be also done outpatient basis. 3 snoring with witnessed apneas and typical anatomic features to suggest obstructive sleep apnea. This needs to before the Lasix therapy on outpatient basis 4 obesity 5 chronic smoker 6 hypertension 7 peripheral vascular disease 8 chronic was involving the left lower extremity Plan Smoking cessation counseling was done. The patient will be discharged home today but if he is undergoing his cardiac procedure without any complications. I'll be glad to see him on outpatient basis for further workup and evaluation and treatment of obstructive sleep apnea and COPD. PSG will be needed to diagnosis of LOCO. We will either a baseline pulmonary function test and decide on treatment accordingly.
[2018-05-05] MEDS ORDERED: ATORVASTATIN 80 MG TAB PO SCH (21:00)
== END 2018-05-05 09:42 | disposition home or self-care (01) ==
LOC: CATHCVL 09:20 → 3SCARD 17:01 → CATHCVL 05-05 09:42
PROVIDERS: ATTEND Internal Medicine Interventional Cardiology
DX: I25.110 Atherosclerotic heart disease of native coronary artery with unstable angina pectoris (principal); I25.82 Chronic total occlusion of coronary artery; I10 Essential (primary) hypertension; F17.210 Nicotine dependence, cigarettes, uncomplicated; E78.5 Hyperlipidemia, unspecified; Z82.49 Family history of ischemic heart disease and other diseases of the circulatory system; G47.33 Obstructive sleep apnea (adult) (pediatric); I73.9 Peripheral vascular disease, unspecified; E66.9 Obesity, unspecified; Z68.39 Body mass index [BMI] 39.0-39.9, adult; I27.21 Secondary pulmonary arterial hypertension; J44.9 Chronic obstructive pulmonary disease, unspecified; Z79.82 Long term (current) use of aspirin; Z79.899 Other long term (current) drug therapy; E78.00 Pure hypercholesterolemia, unspecified; I45.10 Unspecified right bundle-branch block
CPT/HCPCS: 93458; 80048; 85025; C9600; C1769 ×3; C1887 ×2; C1725 ×3; C1874 ×2; C1894; J2250; J2001; J1644; J0583; Q9967; J2270

== ENCOUNTER 2018-07-13 12:11 | Inpatient (IN) | payer MEDICARE ==
[2018-07-13] MEDS ORDERED: ALBUTEROL NEBULIZED 2.5 MG/3 ML INHALATION STA (12:19)
[2018-07-13] MEDS ORDERED: IPRATROPIUM 0.5 MG/2.5 ML NEBU INHALATION STA (12:19)
[2018-07-13] MEDS ORDERED: methylPREDNISolone SOD SUCCI 125 MG/2 ML VIAL IV STA (12:19)
--- NOTE | 2018-07-13 12:22 | ED ---
General Adult HPI - General Stated complaint: near syncope Time Seen by Provider: 07/13/18 12:14 Source: patient, EMS, RN notes reviewed, old records reviewed - History of Present Illness Initial comments: 63-year-old male history COPD, congestive heart failure presents for evaluation of syncope. Patient was at his family doctor's office, had received checkup as well as evaluation for cough and dyspnea over the past several days. He had left the office, to his car, his states he felt unwell, had brief loss consciousness with urinary incontinence. No generalized seizure activity witnessed. EMS reports hypoxia, otherwise stable vitals. Patient does complain of dyspnea and cough. No chest pain. No palpitations. No focal numbness or weakness. No headache. No history of seizure disorder. - Related Data Home Medications Medication Instructions Recorded Confirmed Escitalopram [Lexapro] 10 mg PO DAILY 09/25/17 07/13/18 Metoprolol Tartrate [Lopressor] 12.5 mg PO DAILY 09/25/17 07/13/18 Tamsulosin HCl [Flomax] 0.4 mg PO PC-SUPPER 09/25/17 07/13/18 Furosemide [Lasix] 40 mg PO DAILY 04/29/18 07/13/18 Losartan [Cozaar] 25 mg PO HS 04/29/18 07/13/18 Previous Rx's Medication Instructions Recorded Aspirin 81 mg PO DAILY #90 chew 05/05/18 Atorvastatin [Lipitor] 80 mg PO HS #90 tab 05/05/18 Clopidogrel [Plavix] 75 mg PO DAILY #90 tab 05/05/18 Nitroglycerin Sl Tabs [Nitrostat] 0.4 mg SUBLINGUAL Q5M PRN #25 tab 05/05/18 Allergies Allergy/AdvReac Type Severity Reaction Status Date / Time No Known Allergies Allergy Verified 07/13/18 12:46 Review of Systems ROS Statement: Those systems with pertinent positive or pertinent negative responses have been documented in the HPI. ROS Other: All systems not noted in ROS Statement are negative. 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 History of Any Multi-Drug Resistant Organisms: None Reported Additional Past Surgical History / Comment(s): STATES VASECTOMY WITH ANESTHESIA. Past Anesthesia/Blood Transfusion Reactions: No Reported Reaction, Motion Sickness Past Psychological History: Anxiety Smoking Status: Current every day smoker Past Alcohol Use History: Heavy Additional Past Alcohol Use History / Comment(s): SMOKES 2 PPD. , SMOKING SINCE 12 YEARS OLD. -( 49 YEARS). DRINKS 3-6 BEERS DAILY Past Drug Use History: None Reported - Past Family History Father Family Medical History: Cancer Additional Family Medical History / Comment(s): ESOPHAGEAL CANCER Sister(s) Family Medical History: Cancer Additional Family Medical History / Comment(s): BREAST CANCER General Exam General appearance: alert, in distress Head exam: Present: atraumatic, normocephalic Eye exam: Present: normal appearance, PERRL ENT exam: Present: normal exam Neck exam: Present: normal inspection. Absent: tenderness, meningismus Respiratory exam: Present: respiratory distress, wheezes, decreased breath sounds, prolonged expiratory Cardiovascular Exam: Present: regular rate, normal rhythm GI/Abdominal exam: Present: soft. Absent: distended, tenderness, guarding Extremities exam: Present: pedal edema. Absent: calf tenderness Neurological exam: Present: alert, oriented X3, CN II-XII intact. Absent: motor sensory deficit Psychiatric exam: Present: normal affect, normal mood Skin exam: Present: warm, intact, diaphoretic. Absent: cyanosis Course Vital Signs 07/13/18 07/13/18 07/13/18 12:19 12:39 12:56 Temperature 98.4 F Pulse Rate 80 87 67 Respiratory 30 H Rate Blood Pressure 177/87 O2 Sat by Pulse 82 L Oximetry EKG Findings - EKG Comments: EKG Findings:: EKG: Normal sinus rhythm, incomplete right bundle-branch block, rate of 82, [place] interval 190, QRS duration 98, QTC 432, no ST segment elevation, artifact in the precordium Medical Decision Making - Medical Decision Making 63-year-old male presenting with respiratory distress, syncopal episode with urinary incontinence, no reported seizure-like activity. I do suspect hypoxia as a cause of syncopal episode, EMS reported that the patient was hypoxic in moderate respiratory distress. He has history of COPD. Chest x-ray shows right perihilar pneumonia. Patient has normal blood cell count, stable hemoglobin, normal platelets, lactic acid is normal, troponin borderline, BNP mildly elevated at 1320. A. fib predominantly that the patient's symptoms are due to COPD, pneumonia. Will admit for treatment of COPD and pneumonia, will remain on telemetry. Case discussed with Dr. Yao, will admit - Lab Data Result diagrams: 07/13/18 12:33 07/13/18 12:33 Lab Results 07/13/18 07/13/18 07/13/18 Range/Units 12:33 12:33 12:33 WBC 8.8 (3.8-10.6) k/uL RBC 4.82 (4.30-5.90) m/uL Hgb 14.8 (13.0-17.5) gm/dL Hct 44.1 (39.0-53.0) % MCV 91.6 (80.0-100.0) fL MCH 30.7 (25.0-35.0) pg MCHC 33.5 (31.0-37.0) g/dL RDW 13.8 (11.5-15.5) % Plt Count 255 (150-450) k/uL Neutrophils % 75 % Lymphocytes % 13 % Monocytes % 8 % Eosinophils % 0 % Basophils % 1 % Neutrophils # 6.6 (1.3-7.7) k/uL Lymphocytes # 1.1 (1.0-4.8) k/uL Monocytes # 0.7 (0-1.0) k/uL Eosinophils # 0.0 (0-0.7) k/uL Basophils # 0.1 (0-0.2) k/uL PT (9.0-12.0) sec INR (<1.2) APTT (22.0-30.0) sec Sodium 133 L (137-145) mmol/L Potassium 4.9 (3.5-5.1) mmol/L Chloride 95 L (98-107) mmol/L Carbon Dioxide 25 (22-30) mmol/L Anion Gap 13 mmol/L BUN 23 H (9-20) mg/dL Creatinine 0.91 (0.66-1.25) mg/dL Est GFR (CKD-EPI)AfAm >90 (>60 ml/min/1.73 sqM) Est GFR (CKD-EPI)NonAf 88 (>60 ml/min/1.73 sqM) Glucose 112 H (74-99) mg/dL Plasma Lactic Acid Vito (0.7-2.0) mmol/L Calcium 9.1 (8.4-10.2) mg/dL Magnesium 2.2 (1.6-2.3) mg/dL Total Bilirubin 1.1 (0.2-1.3) mg/dL AST 35 (17-59) U/L ALT 36 (21-72) U/L Alkaline Phosphatase 76 (38-126) U/L Total Creatine Kinase 248 H (55-170) U/L CK-MB (CK-2) 5.3 H (0.0-2.4) ng/mL CK-MB (CK-2) Rel Index 2.1 Troponin I 0.020 (0.000-0.034) ng/mL NT-Pro-B Natriuret Pep pg/mL Total Protein 7.9 (6.3-8.2) g/dL Albumin 4.5 (3.5-5.0) g/dL 07/13/18 07/13/18 07/13/18 Range/Units 12:33 12:33 12:33 WBC (3.8-10.6) k/uL RBC (4.30-5.90) m/uL Hgb (13.0-17.5) gm/dL Hct (39.0-53.0) % MCV (80.0-100.0) fL MCH (25.0-35.0) pg MCHC (31.0-37.0) g/dL RDW (11.5-15.5) % Plt Count (150-450) k/uL Neutrophils % % Lymphocytes % % Monocytes % % Eosinophils % % Basophils % % Neutrophils # (1.3-7.7) k/uL Lymphocytes # (1.0-4.8) k/uL Monocytes # (0-1.0) k/uL Eosinophils # (0-0.7) k/uL Basophils # (0-0.2) k/uL PT 10.5 (9.0-12.0) sec INR 1.0 (<1.2) APTT 28.3 (22.0-30.0) sec Sodium (137-145) mmol/L Potassium (3.5-5.1) mmol/L Chloride (98-107) mmol/L Carbon Dioxide (22-30) mmol/L Anion Gap mmol/L BUN (9-20) mg/dL Creatinine (0.66-1.25) mg/dL Est GFR (CKD-EPI)AfAm (>60 ml/min/1.73 sqM) Est GFR (CKD-EPI)NonAf (>60 ml/min/1.73 sqM) Glucose (74-99) mg/dL Plasma Lactic Acid Vito 1.5 (0.7-2.0) mmol/L Calcium (8.4-10.2) mg/dL Magnesium (1.6-2.3) mg/dL Total Bilirubin (0.2-1.3) mg/dL AST (17-59) U/L ALT (21-72) U/L Alkaline Phosphatase (38-126) U/L Total Creatine Kinase (55-170) U/L CK-MB (CK-2) (0.0-2.4) ng/mL CK-MB (CK-2) Rel Index Troponin I (0.000-0.034) ng/mL NT-Pro-B Natriuret Pep 1320 pg/mL Total Protein (6.3-8.2) g/dL Albumin (3.5-5.0) g/dL Critical Care Time Critical Care Time: Yes Total Critical Care Time: 35 Disposition Clinical Impression: Syncope, COPD exacerbation, Pneumonia Disposition: ADMITTED IP TO THIS [facility] Condition: Stable Is patient prescribed a controlled substance at d/c from ED?: No Referrals: Jose Yao DO [Primary Care Provider] - 1-2 days Decision to Admit Reason: Admit from EC Decision Date: 07/13/18 Decision Time: 14:44
[2018-07-13 12:27] VITALS: TEMP 98.4
[2018-07-13 13:11] LABS: Basophils # (A) 0.1 k/uL (0-0.2); Basophils % (A) 1 %; Eosinophils % (A) 0 %; HCT 44.1 % (39.0-53.0); HGB 14.8 gm/dL (13.0-17.5); Lymphocytes # (A) 1.1 k/uL (1.0-4.8); Lymphocytes % (A) 13 %; MCH 30.7 pg (25.0-35.0); MCHC 33.5 g/dL (31.0-37.0); MCV 91.6 fL (80.0-100.0); Mean Platelet Volume 7.2; Monocytes # (A) 0.7 k/uL (0-1.0); Monocytes % (A) 8 %; Neutrophils # (A) 6.6 k/uL (1.3-7.7); Neutrophils % (A) 75 %; Platelet Count 255 k/uL (150-450); RBC 4.82 m/uL (4.30-5.90); RDW 13.8 % (11.5-15.5); WBC 8.8 k/uL (3.8-10.6)
[2018-07-13 13:18] LABS: Partial Thromboplastin Time 28.3 sec (22.0-30.0); Prothrombin Time 10.5 sec (9.0-12.0)
[2018-07-13 13:27] LABS: ALT 36 U/L (21-72); AST 35 U/L (17-59); Albumin 4.5 g/dL (3.5-5.0); Alkaline Phosphatase 76 U/L (38-126); Anion Gap 13 mmol/L; Blood Urea Nitrogen 23 mg/dL (9-20); Calcium 9.1 mg/dL (8.4-10.2); Carbon Dioxide 25 mmol/L (22-30); Chloride 95 mmol/L (98-107); Glucose 112 mg/dL (74-99); Magnesium 2.2 mg/dL (1.6-2.3); Potassium 4.9 mmol/L (3.5-5.1); Sodium 133 mmol/L (137-145); Total Bilirubin 1.1 mg/dL (0.2-1.3); Total Protein 7.9 g/dL (6.3-8.2)
[2018-07-13 13:47] LABS: Creatine Kinase MB 5.3 ng/mL (0.0-2.4); Troponin I 0.02 ng/mL (0.000-0.034)
--- NOTE | 2018-07-13 13:52 | CT ---
EXAMINATION TYPE: CT brain wo con DATE OF EXAM: 07/13/2018 COMPARISON: None HISTORY: Near syncope CT DLP: 1099.[address] of the brain was performed. The ventricles, basal cisterns and sulci overlying the cerebral convexities demonstrate mild enlargem ent. There is no evidence for intracranial hemorrhage or sulcal effacement. There is decreased attenuation about the periventricular white matter and deep white matter of both c erebral hemispheres, compatible with chronic small vessel ischemia. Differential diagnosis does inclu de demyelination. No mass effects are seen.No midline shift. Osseous calvarium is intact. If symptoms persist consider MRI. IMPRESSION: 1. Age related atrophic and chronic small vessel ischemic change without acute intracranial process s een at this time.
--- NOTE | 2018-07-13 14:04 | XR ---
EXAMINATION TYPE: XR chest 2V DATE OF EXAM: 07/13/2018 COMPARISON: None INDICATION: History of COPD, difficulty breathing TECHNIQUE: Frontal and lateral views of the chest are obtained. FINDINGS: The heart size is normal. The pulmonary vasculature is normal. Mild infiltrate is in the right infrahilar region follow-up is recommended.. IMPRESSION: 1. Mild infiltrate appears to be in the right infrahilar region. Follow-up examinations are recommend ed
[2018-07-13] MEDS ORDERED: FUROSEMIDE 10 MG/ML 4 ML VIAL IV STA (14:30)
[2018-07-13] MEDS ORDERED: AZITHROMYCIN 500 MG in SODIUM CHLORIDE 0.9% 250 ML IVPB STA (14:32)
[2018-07-13] MEDS ORDERED: IPRATROPIUM-ALBUTEROL 3 ML NEB INHALATION PRN (14:36)
[2018-07-13] MEDS ORDERED: ALBUTEROL NEBULIZED 2.5 MG/3 ML INHALATION PRN (14:39)
[2018-07-13 15:01] LABS: Appearance,Urine Clear (Clear); Bilirubin,Urine Negative (Negative); Blood,Urine Negative (Negative); Color,Urine Yellow; Glucose,Urine (UA) Negative (Negative); Hyaline Casts,Urine 3 /lpf (0-2); Ketones,Urine Negative (Negative); Leukocyte Esterase,Urine Negative (Negative); Mucus,Urine Few /hpf; Nitrite,Urine Negative (Negative); PH, Urine 5.5 (5.0-8.0); Protein,Urine 1+ (Negative); RBC,Urine 1 /hpf (0-5); Squamous Epithelial Cell,Urine <1 /hpf (0-4); Urobilinogen,Urine <2.0 mg/dL (<2.0); WBC,Urine 1 /hpf (0-5)
[2018-07-13 15:43] VITALS: BMI 35.6
[2018-07-13 15:54] VITALS: BP 142/65; PULSE 70; RESP 28
[2018-07-13] MEDS ORDERED: IPRATROPIUM-ALBUTEROL 3 ML NEB INHALATION SCH (16:00)
[2018-07-13] MEDS ORDERED: methylPREDNISolone SOD SUCCI 125 MG/2 ML VIAL IV SCH (18:00)
== END 2018-07-13 16:06 | disposition left against medical advice (07) | DRG 194 ==
LOC: EC 12:11 → 3SCARD 14:36
PROVIDERS: ADMIT Family Medicine; ATTEND Family Medicine
DX: J18.9 Pneumonia, unspecified organism (principal); J44.0 Chronic obstructive pulmonary disease with (acute) lower respiratory infection; J44.1 Chronic obstructive pulmonary disease with (acute) exacerbation; F17.200 Nicotine dependence, unspecified, uncomplicated; I11.0 Hypertensive heart disease with heart failure; I48.91 Unspecified atrial fibrillation; I50.9 Heart failure, unspecified; R09.02 Hypoxemia; R32 Unspecified urinary incontinence; Z79.02 Long term (current) use of antithrombotics/antiplatelets; Z79.82 Long term (current) use of aspirin; Z80.0 Family history of malignant neoplasm of digestive organs; Z80.3 Family history of malignant neoplasm of breast
CPT/HCPCS: 36415; 70450; 71046; 80053; 81001; 82550; 82553; 83605; 83735; 83880; 84484; 85025; 85610; 85730; 87040; 94640; 96374; 99291

== ENCOUNTER 2018-11-02 04:59 | Emergency (ER) | payer MEDICARE ==
[~2018-11-02 04:59] MED LIST changes: +EPINEPHrine 10 ML SYRINGE (0.1 MG/ML) ONE; -LACTATED RINGERS 1,000 ML IV SCH; +SODIUM BICARB 8.4% 50 ML SYR (1 MEQ/ML) ONE
--- NOTE | 2018-11-02 06:38 | ED ---
CPR HPI - General Chief Complaint: Cardiac Arrest/CPR Stated Complaint: Cardiac arrest Source: EMS Mode of arrival: EMS Limitations: altered mental status - History of Present Illness Initial Comments: Patient is 63-year-old man brought by EMS after he had collapsed and become unresponsive at home. The patient's states that she had been in another room of the house and heard the patient fall. She went to check and he rapidly became unconscious, stopped breathing and she called EMS. She was advised to perform chest compressions. EMS arrived on the scene approximately 5-6 minutes after, and found the patient without any vital signs. They started ACLS protocol, placing a Kristopher tube, IV, and started chest compressions. The patient placed on the monitor phoned in V. fib and shock was given. In addition multiple epinephrine and sodium bicarb given. The patient reverted to PEA following the shock. Total down time approximately 45-50 minutes. MD Complaint: found unresponsive, collapsed during rest Onset/Timin -: minute(s) Place: home Bystander CPR Performed: Yes AED Applied by Bystander/Optometric Technician: Yes Shock Advised: Yes Number of Shocks Delivered: 1 Downtime Before ACLS Arrival (mins): 6 Initial Findings in the Field: unresponsive, no respirations, no pulse, VTACH/VFIB ROSC in the Field: No Associated Injuries: No Treatments Prior to Arrival: other airway device, chest compressions, defibrillated shocks #, epinephrine mgs #, sodium bicarbonate - Related Data Home Medications Medication Instructions Recorded Confirmed Escitalopram [Lexapro] 10 mg PO DAILY 09/25/17 08/04/18 Metoprolol Tartrate [Lopressor] 12.5 mg PO DAILY 09/25/17 08/04/18 Tamsulosin HCl [Flomax] 0.4 mg PO BID 09/25/17 08/04/18 Furosemide [Lasix] 40 mg PO DAILY 04/29/18 08/04/18 Losartan [Cozaar] 25 mg PO HS 04/29/18 08/04/18 Previous Rx's Medication Instructions Recorded Aspirin 81 mg PO DAILY #90 chew 05/05/18 Atorvastatin [Lipitor] 80 mg PO HS #90 tab 05/05/18 Clopidogrel [Plavix] 75 mg PO DAILY #90 tab 05/05/18 Nitroglycerin Sl Tabs [Nitrostat] 0.4 mg SUBLINGUAL Q5M PRN #25 tab 05/05/18 Allergies Allergy/AdvReac Type Severity Reaction Status Date / Time No Known Allergies Allergy Verified 08/04/18 08:08 Review of Systems ROS Statement: Those systems with pertinent positive or pertinent negative responses have been documented in the HPI. ROS Other: All systems not noted in ROS Statement are negative. Limitations: ROS unobtainable due to patients medical condition Past Medical History Past Medical History: Chest Pain / Angina, COPD, Hyperlipidemia, Hypertension, Myocardial Infarction (CT), Pneumonia, Prostate Disorder, Vascular Disorder Additional Past Medical History / Comment(s): FREQUENT URINATION, SOB WITH ACTIVITY., OCCASIONAL BACK PAIN. WOUND LT LEG GOES TO [facility] EVERY TUE Last Myocardial Infarction Date:: UNK History of Any Multi-Drug Resistant Organisms: None Reported Past Surgical History: Heart Catheterization With Stent Additional Past Surgical History / Comment(s): STATES VASECTOMY WITH ANESTHESIA. Past Anesthesia/Blood Transfusion Reactions: Motion Sickness Additional Past Anesthesia/Blood Transfusion Reaction / Comment(s): NEVER HAD ANY BLOOD TRANSFUSION Date of Last Stent Placement:: 2017 Past Psychological History: Anxiety Smoking Status: Current every day smoker - Past Family History Father Family Medical History: Cancer Additional Family Medical History / Comment(s): ESOPHAGEAL CANCER Sister(s) Family Medical History: Cancer Additional Family Medical History / Comment(s): BREAST CANCER General Exam Limitations: physical limitation (Unresponsive) General appearance: other (Unresponsive) Head exam: Present: atraumatic, normocephalic, other (No evidence of trauma) Eye exam: Absent: PERRL, EOMI, scleral icterus, conjunctival injection, periorbital swelling, periorbital tenderness Pupils: Present: mydriatic, other (Corneal drying) ENT exam: Present: other (There is a Kristopher tube in the oropharynx with vomitus present does well. His membranes appear cyanotic) Neck exam: Present: normal inspection, other (No evidence trauma) Respiratory exam: Present: rhonchi (During bagging), other (There is no spontaneous inspiratory effort.) Cardiovascular Exam: Present: other (There is no palpable PMI. No cardiac sounds. No palpable carotid, radial or femoral pulses.) GI/Abdominal exam: Present: hernia (Palpable umbilical hernia.). Absent: tenderness, mass Extremities exam: Present: normal inspection Back exam: Present: normal inspection Neurological exam: Present: other (GCS is 3. (E=1, V=1, M=1) no cranial nerve or deep tendon reflexes.) Skin exam: Present: intact, cyanosis. Absent: normal color, rash Medical Decision Making - Medical Decision Making Patient is 63-year-old man who collapsed at home, and found by EMS in cardiac arrest with VJose taylor. They instituted ACLS protocol. Patient in PEA following one defibrillation. ACLS is continued here. Following the first epinephrine patient did briefly have return of pulse but within seconds deteriorated into PEA. There was no subsequent response to epinephrine or sodium bicarb. Discussion with patient's family revealed that he had expressed desire to not have any resuscitative attempts, patient is pronounced at 5:12 AM area I discussed case with Dr. Yao, who did state this patient did have underlying medical conditions. Case discussed with medical officer psychiatry. Critical Care Time Critical Care Time: Yes (17) Disposition Clinical Impression: Cardiac arrest Disposition: Condition: Undetermined Referrals: Jose Yao DO [Primary Care Provider] - 1-2 days
== END 2018-11-02 11:10 | disposition expired ==
LOC: EC 04:59 → SUPCPDRO 04:59 → EC 11:10
DX: I46.9 Cardiac arrest, cause unspecified (principal); K42.9 Umbilical hernia without obstruction or gangrene; I10 Essential (primary) hypertension; I25.2 Old myocardial infarction; N42.9 Disorder of prostate, unspecified; F41.9 Anxiety disorder, unspecified; F17.200 Nicotine dependence, unspecified, uncomplicated; Z79.899 Other long term (current) drug therapy; Z95.5 Presence of coronary angioplasty implant and graft; Z98.52 Vasectomy status
CPT/HCPCS: 93799; 99285